=== PATIENT | male | born 1970 | race Caucasian/White ===

== ENCOUNTER 2020-06-21 06:34 | Outpatient (REF) | payer BC, SELFPAY ==
[2020-06-21 11:59] LABS: Prostate Specific Antigen Scr 1.98 ng/mL (<0.05-4.0); TSH reflex Free T4 3.51 mIU/mL (0.32-4.0)
[2020-06-21 12:00] LABS: Anion Gap 15 (12-20); Blood Urea Nitrogen 16 mg/dL (9-16); Calcium 8.5 mg/dL (8.4-10.2); Carbon Dioxide 27 mmol/L (22-29); Chloride 102 mmol/L (96-108); Cholesterol 213 mg/dL; Estimated Glomerular Filt Rate > 60; Glucose Fasting 88 mg/dL (60-99); HDL Cholesterol 43 mg/dL; LDL Cholesterol Calculated 136 mg/dl; Potassium 4.1 mmol/l (3.3-5.1); Sodium 140 mmol/L (135-145); Triglycerides 171 mg/dL
== END 2020-06-21 06:35 | disposition home or self-care (01) ==
LOC: HO.HMGCLDS 06:34
PROVIDERS: PCP Nurse Practitioner Family; Visit Provider Nurse Practitioner Family
DX: Z12.5 Encounter for screening for malignant neoplasm of prostate (principal); Z00.00 Encounter for general adult medical examination without abnormal findings
CPT/HCPCS: 80048; 80061; 84153; 84443

== ENCOUNTER → 2020-07-19 15:18 | Outpatient (BNVA) | payer BC, SELFPAY | PROVIDERS: PCP Nurse Practitioner Family; Referring Provider Nurse Practitioner Family; Visit Provider Nurse Practitioner Family | DX: Z76.89 Persons encountering health services in other specified circumstances (principal) ==

== ENCOUNTER 2020-07-27 14:12 | Outpatient (REF) | payer BC, SELFPAY | END 2020-07-27 14:13 | disposition home or self-care (01) | LOC: HO.LAB 14:12 | PROVIDERS: Visit Provider Internal Medicine | DX: Z20.828 Contact with and (suspected) exposure to other viral communicable diseases (principal) | CPT/HCPCS: C9803; U0003 ==

== ENCOUNTER 2020-09-10 09:59 | Day surgery (SDC) | payer BC, SELFPAY ==
[2020-09-04 10:25] VITALS: BMI 22.7
--- NOTE | 2020-09-06 15:31 | HO.ANESPROP2 ---
Documented by User: Isabella Urias 09/06/20 15:32 HPI - Anesthesia Eval Consult details Narrative: 49yo M for Colonoscopy [facility] Past Medical History Medical History Multiple lipomas Family History Family History (Updated 07/19/20 @ 15:25 by Laxmi Ford CMA) Father No problems noted. Mother Family history of Alzheimer's disease Surgical History Surgical History Lipoma Social History Social History (Updated 07/19/20 @ 15:26 by Laxmi Ford CMA) Alcohol intake: current Alcohol intake frequency: a few times a week Alcohol type: beer Smoking Status: Never smoker Advance Directives: No Advance Directives Information Provided: Yes Meds Allergies Allergy/AdvReac Type Severity Reaction Status Date / Time No Known Allergies Allergy Verified 06/12/20 15:30 Exam Exam Date and Time: September 06, 2020 1531 Height,Weight and Vital Signs: Height 6 ft 0.5 in Weight 77.111 kg Assessment and Plan Assessment Anesthesia Assessment: Chart Reviewed Documented by User: Lori Bowman 09/10/20 10:20 [facility] Past Medical History Medical History Multiple lipomas Family History Family History (Updated 07/19/20 @ 15:25 by Laxmi Ford CMA) Father No problems noted. Mother Family history of Alzheimer's disease Surgical History Surgical History Lipoma Social History Social History (Updated 07/19/20 @ 15:26 by Laxmi Ford CMA) Alcohol intake: current Alcohol intake frequency: a few times a week Alcohol type: beer Smoking Status: Never smoker Advance Directives: No Advance Directives Information Provided: Yes Meds Allergies Allergy/AdvReac Type Severity Reaction Status Date / Time No Known Allergies Allergy Verified 06/12/20 15:30 Exam Airway Mallampati Class: II TM Dist: >3cm Neck ROM: Full
[2020-09-10 10:20] VITALS: BP 143/94; PULSE 92; RESP 16; TEMP 37.1; O2SAT 99; BMI 23.0
[2020-09-10] MEDS: Lactated Ringers 1,000 ML 100 ML IVCONT (10:27)
--- NOTE | 2020-09-10 10:53 | P.OP_ITS ---
Operative Note Operative Note Date of Service: 09/10/20 Narrative: Pre-op diagnosis: Colon cancer screening Post-op diagnosis: other (Diverticulosis, hemorrhoids) Procedure: COLONOSCOPY TILL CECUM Consent: Indications for the procedure and potential complications of bleeding, perforation, reaction to medications and missed diagnosis were discussed with the patient and informed consent was obtained. Instrument: Olympus PCF H 190 L variable stiffness pediatric colonoscope Monitoring: Vital signs and clinical assessment, intermittent blood pressure monitoring, continuous EKG monitoring, Pulse oximetry and Carbon Dioxide monitoring were done throughout the procedure. Colon withdrawl time was 18 minutes. Procedure: The patient was placed in the left lateral decubitis position and pre-procedure medications were administered. After a digital rectal examination of the ano-rectum, the video colonoscope was inserted into the rectum and advanced through the colon to the cecum. The colonoscope was slowly withdrawn in a retrograde panoramic fashion and the colon mucosa was carefully examined including a retroflexed view of the rectum. Findings and interventions are described below. Procedure Difficulty: Without difficulty Findings: Terminal Ileum: Not evaluated Cecum: Normal Ascending Colon: Normal Transverse Colon: Normal Descending Colon: Moderate diverticulosis Sigmoid Colon: Moderate diverticulosis Rectum: Normal Ano-rectum: Moderate internal hemorrhoids Colon preparation: Good Impression and Post Procedure Diagnosis: Colonoscopy Findings: No polyps were detected Moderate diverticulosis seen in the left colon Moderate hemorrhoids on retroflexed exam. Plan: Patient has an appointment on 09/17/20 in the [facility] with Ileana Asher FNP- BC - pt was advised to cancel since no biopsies were obtained. Repeat Colonoscopy in 10 years unless he has any lower GI symptoms - placed on 10 yr recall. Above findings were reviewed with the patient and diverticulosis handout was given in the discharge area Surgeon: Raúl Gore MD Anesthesia: MAC (Kaila Brantley CRNA) Estimated blood loss (mL): 0 Pathology: none sent Condition: stable Disposition: PACU
--- NOTE | 2020-09-10 10:53 | MHC.SHP ---
Pre-Procedural Eval Section A The patient is an INPATIENT: No The History & Physical has been completed within 30 days and I have reviewed it.: No Section B Chief Complaint: screening Details of Present Illness: colon cancer screening - 1st colonoscopy Relevant Family History (Specify if Yes): No Relevant Social History: None Present Medications: see Short Stay Collaborative assessment Medical History: Significant History (Multiple lipoma) History of Previous Operations: Relevant previous surgery/procedure and date(s) (Lipoma) Allergies: Allergies Allergy/AdvReac Type Severity Reaction Status Date / Time No Known Allergies Allergy Verified 06/12/20 15:30 Review of Systems Sugical H&P ROS: Negative: Constitution, Cardiovascular, Respiratory and Gastrointestinal Exam Surgical H&P Exam: Normal: Heart, Normal: Lungs, Normal: Extremities and Normal: Abdomen Plan Diagnosis/Plan: Unchanged I have reviewed the history and physical and performed a pertinent physical examination on my patient. No changes have occurred unless specified.
[2020-09-10 11:35] VITALS: BP 122/72; PULSE 89; RESP 16; TEMP 36.2; O2SAT 98
[2020-09-10 11:50] VITALS: BP 110/77; PULSE 80; RESP 18; O2SAT 99
--- NOTE | 2020-09-10 12:04 | HO.POSTANES ---
Post Anesthesia Evaluation Post Anesthesia Evaluation Vital Signs: Vital Signs Temp Pulse Resp BP Pulse Ox 09/10/20 11:50 97.2 F 80 18 110/77 99 09/10/20 11:35 97.2 F 89 16 122/72 98 09/10/20 10:20 98.7 F 92 16 143/94 H 99 Anesthesia: Monitored Mental Status: Awake Pain Control: Satisfactory Nausea/Vomiting: None Hydration: Adequate Anesthesia-Related Issues: No Anes. Related Issues
== END 2020-09-10 12:27 | disposition home or self-care (01) ==
PROVIDERS: Visit Provider Internal Medicine Gastroenterology
PROC: 0DJD8ZZ Inspection of Lower Intestinal Tract, Via Natural or Artificial Opening Endoscopic (ICD-10-PCS; CPT 45378; principal; 2020-09-10 11:20)
DX: Z12.11 Encounter for screening for malignant neoplasm of colon (principal); K57.30 Diverticulosis of large intestine without perforation or abscess without bleeding; K64.8 Other hemorrhoids
CPT/HCPCS: 45378

== ENCOUNTER 2023-03-16 06:04 | Outpatient (REF) | payer BC, SELFPAY ==
[2023-03-16 11:30] LABS: MANUAL DIFF FLAG NO
[2023-03-16 12:06] LABS: Basophils Absolute Auto 0.1 X10*3/uL (0.0-0.2); Basophils Percent Auto 1.3 % (0-2); Eosinophils Absolute Auto 0.1 X10*3/uL (0.0-0.4); Eosinophils Percent Auto 2.2 % (0-4); Hematocrit 44.8 % (42.0-52.0); Hemoglobin 14.9 g/dl (14.0-18.0); Imm Gran Abs Auto 0.02 X10*3/uL (0.00-0.03); Imm Gran Pct Auto 0.3 % (0.0-0.4); Lymphocytes Absolute Auto 2.8 X10*3/uL (1.2-4.9); Lymphocytes Percent Auto 44.2 % (20-40); Mean Corpuscular HGB Conc 33.3 g/dl (31.0-36.0); Mean Corpuscular Volume 93.1 fL (80.0-98.0); Mean Platelet Volume 11.2 fL (9.4-12.4); Monocytes Absolute Auto 0.5 X10*3/uL (0.1-1.2); Monocytes Percent Auto 8.3 % (2-11); Neutrophils Absolute Auto 2.7 x10*3/uL (2.0-8.3); Neutrophils Percent Auto 43.7 % (45-73); Platelet Count 226 X10*3/uL (160-400); Red Blood Count 4.81 X10*6/uL (4.60-5.80); Red Cell Distribution Width 11.7 % (11.0-16.0); White Blood Count 6.3 X10*3/uL (4.8-10.8)
[2023-03-16 12:09] LABS: Appearance Urine Clear; Color Urine Yellow; Glucose Urine UA Negative (Negative); Leukocyte Esterase Urine Negative (Negative); Nitrite Urine Negative (Negative); PH 8.5 (5.0-9.0); Urine Blood Negative (Negative); Urine Ketones Negative (Negative); Urine Protein Negative (Neg-Trace)
[2023-03-16 12:43] LABS: Prostate Specific Antigen Scr 2.54 ng/mL (<0.05-4.0)
[2023-03-16 12:57] LABS: Alanine Aminotransferase 35 U/L (0-40); Albumin Level 4.4 g/dL (3.5-5.0); Alkaline Phosphatase 63 U/L (39-117); Anion Gap 13 (12-20); Aspartate Amino Transferase 28 U/L (5-37); Bilirubin Total 0.5 mg/dL (0.0-1.0); Blood Urea Nitrogen 13 mg/dL (9-16); Calcium 9.6 mg/dL (8.4-10.2); Carbon Dioxide 28 mmol/L (22-29); Chloride 107 mmol/L (96-108); Cholesterol 190 mg/dL; Estimated Glomerular Filt Rate > 60; Glucose Fasting 93 mg/dL (60-99); HDL Cholesterol 42 mg/dL; LDL Cholesterol Calculated 113 mg/dl; Potassium 4.2 mmol/L (3.3-5.1); Sodium 144 mmol/L (135-145); Total Protein 6.8 g/dL (6.5-8.0); Triglycerides 178 mg/dL
[2023-03-16 13:00] LABS: TSH reflex Free T4 2.92 uIU/mL (0.32-4.0)
== END 2023-03-16 06:05 | disposition home or self-care (01) ==
LOC: HO.HMGCLDS 06:04
PROVIDERS: PCP Nurse Practitioner Family; Visit Provider Nurse Practitioner Family
DX: Z00.00 Encounter for general adult medical examination without abnormal findings (principal); Z12.5 Encounter for screening for malignant neoplasm of prostate; E78.5 Hyperlipidemia, unspecified; Z13.29 Encounter for screening for other suspected endocrine disorder
CPT/HCPCS: 36415; 80053; 80061; 81003; 84153; 84443; 85025

== ENCOUNTER 2024-06-08 14:50 | Outpatient (AMB) | payer BC, SELFPAY ==
--- NOTE | 2024-06-08 14:55 | A.OFFPC_ITS ---
Vital Signs 06/08/24 14:57 Height 6 ft Weight 179 lb BMI 24.3 BP 122/76 Blood Pressure Location Rt brachial Position Sitting Pulse 85 Pulse Source Pulse Oximeter Pulse Oximetry (%) 97 Intake Visit Reasons: Annual PE Azam from 02/18/24 Intake Note: pt is here for annual exam Rubber Engraver Required: No Allergies No Known Allergies Allergy (Verified 06/08/24 17:19) Medication List - Last Reconciled 06/08/24 by MEHRAN Lynch No Known Home Meds Tobacco use date assessed: 06/08/24 Dental Screening Dental Screen Date: 06/08/24 Did you have a dental visit in the last 12 months?: Yes Did you have a dental problem in the last 6 months where you did not have access to dental care?: No Was dental information given to patient?: Patient has dentist HPI Annual PE Azam from 02/18/24 HPI Details Pt is here for a PE. Will order labs. Colon screen is up to date. Due for PSA, will order. Denies dribbling with urination, weak stream, and frequent nocturia. refused ABILIO today PFSH Medical History Multiple lipomas Surgical History Lipoma Family History Father No problems noted. Mother Family history of Alzheimer's disease Social History Housing: House Alcohol intake: current Alcohol intake frequency: a few times a week Alcohol type: beer Patient Tobacco Use Status: Never used Tobacco e-Cigarette/Vaping Use: Never Used Second Hand Smoke Exposure: Yes service: No Current occupational status: employed Current occupation: [employer] Current occupational exposures/hazards: Yes Cognitive needs: No Hearing needs: No Vision needs: No Questionnaire PHQ-9 Over the last 2 weeks, how often have you been bothered by any of the following problems? 1. Little interest or pleasure in doing things: several days 2. Feeling down, depressed, or hopeless: not at all 3. Trouble falling or staying asleep, or sleeping too much: several days 4. Feeling tired or having little energy: several days 5. Poor appetite or overeating: not at all 6. Feeling bad about yourself - or that you are a failure or have let yourself or your family down: not at all 7. Trouble concentrating on things, such as reading the newspaper or watching television: not at all 8. Moving or speaking so slowly that other people could have noticed. Or the opposite - being so fidgety or restless that you have been moving around a lot more than usual: not at all 9. Thoughts that you would be better off or of hurting yourself in some way: not at all Total score: 3 Depression Screening Interpretation: Negative Depression Screening Done: Yes 20220 - PHQ-9 Billing: Yes Source: Developed by Drs. Gerardo Grissom, Karen Conteh, Joel Chi and colleagues, with an educational suzanne from [employer]. Thrive Questionnaire Date Thrive assessed: 06/08/24 I am a: Patient What is your living situation today?: I have a steady place to live Within the past 12 months, did the food you bought not last and you didn't have the money to get more?: Never true Within the past 12 months, did you worry whether your food would run out before you got money to buy more?: Never true Do you have trouble paying for medicines?: No Do you have trouble getting transportation to medical appointments?: No Do you have trouble paying your heating and electricity bill?: No Do you have trouble taking care of your child, family member or friend?: No Do you have trouble with day-to-day activities such as bathing, preparing meals, shopping, managing finances, etc.?: No Are you interested in more education?: No Please select the resources that you would like help with: None Currently or been in a relationship where the following occur: No concerns reported THRIVE Score: 0 AUDIT C Alcohol Use Questionnaire (AUDIT-C) 1. How often do you have a drink containing alcohol?: 2-4 times a month 2. How many drinks containing alcohol do you have on a typical day when you are drinking?: 3 or 4 3. How often do you have six or more drinks on one occasion?: Less than monthly Total Score: 4 Score Reviewed/Action Taken: Yes JANET-7 AMB Questionnaire JANET-7 Date JANET - 7 assessed: 06/08/24 Feeling nervous, anxious, or on edge: 0 = Not at all Not being able to stop or control worryin = Not at all Worrying too much about different things: 0 = Not at all Trouble relaxin = Not at all Being so restless that it is hard to sit still: 0 = Not at all Becoming easily annoyed or irritable: 1 = Several days Feeling afraid as if something awful might happen: 0 = Not at all Total JANET-7 score (0-4 normal; 5-9 mild; 10-14 moderate; 15-21 severe): 1 Source: Developed by Drs. Gerardo Grissom, Karen Conteh, Joel Chi and colleagues, with an educational suzanne from [employer]. JANET-7 Assessment Billing JANET-7 Assessment Tool: JANET-7 Assessment 90546 Review of Systems Const Denies chills and Denies fever(s) Eyes Denies blurry vision ENT Denies vertigo, Denies dizziness and Denies sore throat Card Denies chest pain at rest, Denies chest pain with activity, Denies diaphoresis, Denies dyspnea and Denies dyspnea on exertion Resp Denies cough, Denies dyspnea, Denies dyspnea on exertion and Denies wheezing GI Denies abdominal pain, Denies melena, Denies hematochezia, Denies constipation, Denies diarrhea and Denies loose stools Denies hematuria Musc Denies numbness and Denies tingling Skin/Breast Denies lesions Neuro Denies vertigo, Denies dizziness, Denies numbness and Denies tingling Psych Denies anxiety, Denies depression, Denies homicidal ideation, Denies suicidal ideation and Denies other (substance abuse) Aller/Immun Denies wheezing Physical exam (Primary Care) Vital Signs: Last Vital Signs Pulse 85 06/08/24 14:57 BP 122/76 06/08/24 14:57 Pulse Ox 97 06/08/24 14:57 BMI result Body Mass Index 24.3 Tobacco/Smoking Status: Tobacco use Status Tobacco use date assessed 06/08/24 06/08/24 15:00 Patient Tobacco Use Status Never used Tobacco 06/08/24 14:57 e-Cigarette/Vaping Use Never Used 06/08/24 14:57 PHQ-9: PHQ-9 Score PHQ-9: Total score 3 06/08/24 15:10 Depression Screening Interpretation: Negative Thrive Assessment: Date of Thrive Assessment Date Thrive assessed 06/08/24 06/08/24 15:00 Currently or been in a relationship where the following occur: No concerns reported Const General: cooperative Nutritional Appearance: well nourished Orientation/consciousness: patient oriented x3 HENMT Head: Yes normal to inspection, Yes normocephalic and Yes atraumatic Ears: TM's normal bilaterally Eyes General: appearance normal, both eyes and all related structures Alignment and Position: alignment normal and position normal Neck Neck: Yes normal visual inspection, Yes no lymphadenopathy and Yes supple Resp Effort & Inspection: normal respiratory effort Auscultation: clear to auscultation bilaterally Cardio Rate: regular rate Rhythm: regular rhythm Heart sounds: S1 normal heart sound present, S2 normal heart sound present and no murmurs GI Palpation (GI): Soft to palpation and nontender Auscultation: normal bowel sounds Other: refused ABILIO Male General Exam: Yes normal external exam Penis: normal penis Scrotum: scrotum normal, testes descended bilaterally and no inguinal hernias Testes: no testicular mass Skin Rashes: no rashes Neuro General: patient oriented x3, moves all extremities, no focal motor deficits and deep tendon reflexes 2+ bilaterally Romberg Test: Negative Psych Appearance: grossly normal Mental Status: mental status grossly normal Speech and movement: Normal speech and movement present Affect: normal affect Attitude: cooperative Thought process: Normal thought process present Thought content: Normal thought content present Insight: Good insight present (Psych) Judgement: Good judgement present (Psych) Coding Level of Care Code Est Pt Prev Care 40-64y(86569) Diagnoses Physical exam Z00.00 Screening PSA (prostate specific antigen) Z12.5 Additional Codes JANET-7 Assessment Billing - JANET-7 Assessment Tool: JANET-7 Assessment 12802 ([id number]) Assessment & Plan Assessment & Plan (1) Physical exam: Code(s): Z00.00 - Encounter for general adult medical examination without abnormal findings Category: Medical Plan: Labs ordered (2) Screening PSA (prostate specific antigen): Code(s): Z12.5 - Encounter for screening for malignant neoplasm of prostate Category: Medical Plan: PSA ordered Plan The patient agreed to the use of a medical laboratory scientist for this encounter. Scribed for MEHRAN Gutierrez by Yarelis Lake medical laboratory scientist, on 06/08/2024 at 15:05 EST. Orders: Orders Complete Blood Count Auto Diff Today Z00.00 - Encounter for general adult medical examination without abnormal findings TSH reflex Free T4 Today Z00.00 - Encounter for general adult medical examination without abnormal findings UA CC w/rflx Micro + Cult Today Z00.00 - Encounter for general adult medical examination without abnormal findings Comprehensive [place]. Panel Fast Today Z00.00 - Encounter for general adult medical examination without abnormal findings Lipid Panel Today Z00.00 - Encounter for general adult medical examination without abnormal findings Prostate Specific Antigen Scr Today Z12.5 - Encounter for screening for malignant neoplasm of prostate
[2024-06-08 14:57] VITALS: BP 122/76; PULSE 85; O2SAT 97; BMI 24.3
== END 2024-06-08 15:22 | disposition home or self-care (01) ==
PROVIDERS: PCP Nurse Practitioner Family; Visit Provider Nurse Practitioner Family
DX: Z00.00 Encounter for general adult medical examination without abnormal findings (principal); Z12.5 Encounter for screening for malignant neoplasm of prostate

== ENCOUNTER → 2024-06-08 14:50 | Outpatient (BNVA) | payer BC, SELFPAY | PROVIDERS: PCP Nurse Practitioner Family; Visit Provider Nurse Practitioner Family | DX: Z00.00 Encounter for general adult medical examination without abnormal findings (principal) | CPT/HCPCS: 96127 ==

== ENCOUNTER → 2024-08-02 09:45 | Outpatient (BNVA) | payer OTHER, SELFPAY | PROVIDERS: PCP Nurse Practitioner Family; Visit Provider Physician Assistant Medical | DX: S00.83XA Contusion of other part of head, initial encounter (principal); S40.011A Contusion of right shoulder, initial encounter; S42.034A Nondisplaced fracture of lateral end of right clavicle, initial encounter for closed fracture; V58.4XXA Person boarding or alighting a pick-up truck or van injured in noncollision transport accident, initial encounter; Z23 Encounter for immunization | CPT/HCPCS: 12001; 70450; 73000; 73030; 90715; 99204 ==

== ENCOUNTER → 2024-08-04 08:48 | Outpatient (BNVA) | payer OTHER, SELFPAY | PROVIDERS: PCP Nurse Practitioner Family; Visit Provider Physician Assistant Medical | DX: S00.93XA Contusion of unspecified part of head, initial encounter (principal); S40.011A Contusion of right shoulder, initial encounter; S42.034A Nondisplaced fracture of lateral end of right clavicle, initial encounter for closed fracture; W17.89XA Other fall from one level to another, initial encounter | CPT/HCPCS: 99213 ==

== ENCOUNTER → 2024-08-08 13:11 | Outpatient (BNVA) | payer OTHER, SELFPAY | PROVIDERS: PCP Nurse Practitioner Family; Visit Provider Physician Assistant Medical | DX: S00.83XA Contusion of other part of head, initial encounter (principal); S40.011A Contusion of right shoulder, initial encounter; S42.034A Nondisplaced fracture of lateral end of right clavicle, initial encounter for closed fracture; V58.4XXA Person boarding or alighting a pick-up truck or van injured in noncollision transport accident, initial encounter | CPT/HCPCS: 99212; 99213 ==

== ENCOUNTER 2024-08-10 07:59 | Outpatient (REF) | payer OTHER, SELFPAY ==
[2024-08-10 10:59] LABS: Appearance Urine Clear; Color Urine Yellow; Glucose Urine UA Negative (Negative); Leukocyte Esterase Urine Negative (Negative); Nitrite Urine Negative (Negative); PH 7.5 (5.0-9.0); Urine Blood Negative (Negative); Urine Ketones Negative (Negative); Urine Protein Negative (Neg-Trace)
[2024-08-10 11:05] LABS: MANUAL DIFF FLAG NO
[2024-08-10 11:11] LABS: Basophils Absolute Auto 0.1 X10*3/uL (0.0-0.2); Basophils Percent Auto 0.9 % (0-2); Eosinophils Absolute Auto 0.1 X10*3/uL (0.0-0.4); Eosinophils Percent Auto 1.8 % (0-4); Hematocrit 44.5 % (42.0-52.0); Hemoglobin 15.5 g/dl (14.0-18.0); Imm Gran Abs Auto 0.02 X10*3/uL (0.00-0.03); Imm Gran Pct Auto 0.3 % (0.0-0.4); Lymphocytes Absolute Auto 2.8 X10*3/uL (1.2-4.9); Lymphocytes Percent Auto 38.3 % (20-40); Mean Corpuscular HGB Conc 34.8 g/dl (31.0-36.0); Mean Corpuscular Hemoglobin 31.8 pg (27.0-33.0); Mean Corpuscular Volume 91.2 fL (80.0-98.0); Mean Platelet Volume 9.9 fL (9.4-12.4); Monocytes Absolute Auto 0.6 X10*3/uL (0.1-1.2); Monocytes Percent Auto 8.1 % (2-11); Neutrophils Absolute Auto 3.8 x10*3/uL (2.0-8.3); Neutrophils Percent Auto 50.6 % (45-73); Platelet Count 277 X10*3/uL (160-400); Red Blood Count 4.88 X10*6/uL (4.60-5.80); Red Cell Distribution Width 11.5 % (11.0-16.0); White Blood Count 7.4 X10*3/uL (4.8-10.8)
[2024-08-10 11:29] LABS: Alanine Aminotransferase 34 U/L (0-40); Albumin Level 4.5 g/dL (3.5-5.0); Alkaline Phosphatase 89 U/L (39-117); Anion Gap 11 (12-20); Aspartate Amino Transferase 25 U/L (5-37); Bilirubin Total 0.7 mg/dL (0.0-1.0); Blood Urea Nitrogen 15 mg/dL (9-16); Calcium 9.4 mg/dL (8.4-10.2); Carbon Dioxide 31 mmol/L (22-29); Chloride 104 mmol/L (96-108); Cholesterol 228 mg/dL (<200); Estimated Glomerular Filt Rate > 60; Glucose Fasting 92 mg/dL (60-99); HDL Cholesterol 38 mg/dL (>40); LDL Cholesterol Calculated 146 mg/dL (<100); Potassium 4.6 mmol/L (3.3-5.1); Sodium 141 mmol/L (135-145); Total Protein 7.1 g/dL (6.5-8.0); Triglycerides 220 mg/dL (<150)
[2024-08-10 11:41] LABS: Prostate Specific Antigen Scr 2.71 ng/mL (<0.05-4.0)
[2024-08-10 11:48] LABS: TSH reflex Free T4 2.25 uIU/mL (0.32-4.0)
== END 2024-08-10 08:00 | disposition home or self-care (01) ==
LOC: HO.10HDL 07:59
PROVIDERS: Visit Provider Nurse Practitioner Family
DX: Z00.00 Encounter for general adult medical examination without abnormal findings (principal); Z12.5 Encounter for screening for malignant neoplasm of prostate; Z13.6 Encounter for screening for cardiovascular disorders
CPT/HCPCS: 36415; 80053; 80061; 81003; 84153; 84443; 85025

== ENCOUNTER 2024-11-09 15:20 | Outpatient (AMB) | payer BC, SELFPAY ==
--- NOTE | 2024-11-09 15:25 | A.OFFVIS_ITS ---
Intake Visit Reasons: Elevated PSA Intake Note: Patient is present for ELEVATED PSA Urology Medication:NONE Antibiotic Allergy:NONE Blood Thinner:NONE Hand Mounter Required: No Allergies No Known Allergies Allergy (Verified 11/09/24 16:00) Medication List - Last Reconciled 11/09/24 by MEHRAN Robles No Known Home Meds HPI Comments Details: Breezy is a very pleasant 53-year-old male patient of Dr. Lui. He presents to the office today as a new patient for an elevated PSA. In discussion with the patient today he reports to be doing and feeling well. When asked he denies any known family history of prostate cancer. He denies any bothersome urinary issues or concerns. In office urinalysis results reviewed with the patient today. Previous PSA results reviewed with the patient today as noted and trended below; PSAs 06/19 2.0, 03/22 2.5, 08/23 2.7 We discussed at length potential causes of elevated PSA. We discussed further workup to include redraw of PSA with no sex the night before, no caffeine morning of, and no heavy lifting 1-2 days prior. We also discussed obtaining retroperitoneal ultrasound for further assessment evaluation. He denies urinary urgency, urinary frequency, incontinence, nocturia, hematuria, dysuria, foul smelling urine, changes to urinary stream, flank pain, fever, and or chills. He is happy with his current voiding parameters. ABILIO offered however deferred. He otherwise offers no other issues or concerns at this time. [facility] Medical History Separation of right acromioclavicular joint Multiple lipomas Surgical History Lipoma Family History Father No problems noted. Mother Family history of Alzheimer's disease Social History Housing: House Alcohol intake: current Alcohol intake frequency: a few times a week Alcohol type: beer Patient Tobacco Use Status: Never used Tobacco e-Cigarette/Vaping Use: Never Used Second Hand Smoke Exposure: Yes service: No Current occupational status: employed Current occupation: [employer] Current occupational exposures/hazards: Yes Cognitive needs: No Hearing needs: No Vision needs: No Review of Systems Const All systems reviewed & are unremarkable except as noted in HPI and below Physical Exam Const General: cooperative, healthy appearing, comfortable, no acute distress, well developed, alert and awake Nutritional Appearance: average body habitus Orientation/consciousness: patient oriented x3 Limitations: no limitations HEENT Head: Yes normal to inspection, Yes normocephalic and Yes atraumatic Ears: hearing grossly normal bilaterally Eyes General: appearance normal, both eyes and all related structures Neck Neck: Yes normal visual inspection and Yes trachea midline Chest Chest palpation & inspection: normal inspection of the chest Resp Effort & Inspection: normal respiratory effort and able to speak in complete sentences Cardio Rate: regular rate GI Inspection: Yes normal to inspection General: Yes no CVA tenderness Back/Spine/Pelvis Back: no CVA tenderness Skin General skin exam: no rashes or lesions noted Neuro General: patient oriented x3 Extrem General: Yes normal to inspection Psych Appearance: grossly normal and well kempt Mental Status: mental status grossly normal Speech and movement: Normal speech and movement present and Clear speech present Affect: normal affect Attitude: cooperative Thought process: Normal thought process present Thought content: Normal thought content present Insight: Fair insight present (Psych) Judgement: Fair judgement present (Psych) Results AMB Urinalysis, Automated UA Leukoctes 0 Trudy/uL Last Edit by RIZWANA Grijalva on 11/09/24 15:37 UA Nitrite Negative Last Edit by RIZWANA Grijalva on 11/09/24 15:37 UA Urobilinogen 3.5 mg/dL Last Edit by RIZWANA Grijalva on 11/09/24 15:3 7 UA Protein 0 mg/dL Last Edit by RIZWANA Grijalva on 11/09/24 15:37 UA pH 5.5 Last Edit by RIZWANA Grijalva on 11/09/24 15:37 UA Blood 0 Darrell/uL Last Edit by RIZWANA Grijalva on 11/09/24 15:37 UA Specific Unity 1.025 Last Edit by RIZWANA Grijalva on 11/09/24 15: 37 UA Ketone Negative Last Edit by RIZWANA Grijalva on 11/09/24 15:37 UA Bilirubin 0 mg/dL Last Edit by RIZWANA Grijalva on 11/09/24 15:37 UA Glucose 0 mg/dL Last Edit by RIZWANA Grijalva on 11/09/24 15:37 Results Reviewed Results Reviewed: Laboratory Last Values Urine pH (Auto) 5.5 11/09/24 15:37 Specific Unity (Auto) 1.025 11/09/24 15:37 Urine Protein (Auto) 0 mg/dL 11/09/24 15:37 Glucose (UA)(Auto) 0 mg/dL 11/09/24 15:37 Urine Ketones (Auto) Negative 11/09/24 15:37 Urine Blood (Auto) 0 Darrell/uL 11/09/24 15:37 Urine Nitrite (Auto) Negative 11/09/24 15:37 Urine Bilirubin (Auto) 0 mg/dL 11/09/24 15:37 Urine Urobilinogen (Auto) 3.5 mg/dL 11/09/24 15:37 Leukocyte Esterase (Auto) 0 Trudy/uL 11/09/24 15:37 Assessment & Plan Assessment & Plan (1) Elevated PSA: Code(s): R97.20 - Elevated prostate specific antigen [PSA] Category: Medical Plan In office urinalysis results reviewed with the patient today; as noted above. Recent PSA results reviewed with the patient today; as noted above. We discussed potential causes of borderline PSA as well as further workup to include redraw of PSA and retroperitoneal ultrasound. He currently denies any bothersome urinary issues or concerns. He reports be happy with current voiding parameters. ABILIO offered however deferred. Follow-up in 1-3 months with redraw of PSA and imaging to be completed prior; or sooner with any issues, concerns, and or questions. Orders: Orders Prostate Specific Antigen Today R97.20 - Elevated prostate specific antigen [PSA] US retroperitoneal comp Today R97.20 - Elevated prostate specific antigen [PSA] AMB Urinalysis Automated Today Z13.9 - Encounter for screening, unspecified Patient Instructions: The patient had an opportunity to ask questions regarding the treatment plan. All questions were answered. Physical exam, labs, and imaging were discussed and reviewed in detail. As well as risks, benefits, and discussion of treatment choices. No major barriers to understanding were identified. The patient expressed understanding and agreement with the above treatment plan. The patient was made aware they should contact our office by phone for worsening of their current condition, the appearance of new symptoms, or with any questions or concerns. Compliance is encouraged with any medications and follow up testing that is ordered. It is a privilege to be allowed the opportunity to participate in? your urological care.? Again, if you have any questions or concerns If you have any questions or concerns please do not hesitate to contact me. The office is [phone]. This note is constructed using voice recognition software. While every effort has been made to ensure accuracy lead manufacturing engineering tech errors may have been included. Yours sincerely, MEHRAN Robles Coding Level of Care Code New Pt Level 3 (16271) Diagnoses Elevated PSA R97.20
== END 2024-11-09 15:56 | disposition home or self-care (01) ==
LOC: HO.HUSH 15:21
PROVIDERS: PCP Nurse Practitioner Family; Visit Provider Nurse Practitioner Family
DX: R97.20 Elevated prostate specific antigen [PSA] (principal); Z13.9 Encounter for screening, unspecified
CPT/HCPCS: 99203

== ENCOUNTER → 2024-11-09 15:20 | Outpatient (BNVA) | payer BC, SELFPAY | PROVIDERS: PCP Nurse Practitioner Family; Visit Provider Nurse Practitioner Family | DX: R97.20 Elevated prostate specific antigen [PSA] (principal) | CPT/HCPCS: 81003 ==

== ENCOUNTER 2025-01-30 15:47 | Outpatient (REF) | payer BC, SELFPAY ==
--- NOTE | ~2025-01-30 | US_ITS ---
EXAMINATION: US RETROPERITONEUM HISTORY: R97.20 - Elevated prostate specific antigen [PSA] TECHNIQUE: Real-time grayscale ultrasound imaging of the kidneys was performed and images were reviewed. COMPARISON: There are no prior studies available for comparison. FINDINGS: Right kidney: The right kidney measures 10.9 x 4.6 x 4.1 cm. Renal parenchymal echotexture and thickness are normal. There is a 1.9 x 2.1 x 2.4 cm cyst in the interpolar region demonstrating septations. There is no hydronephrosis or renal calculi. Left Kidney: The left kidney measures 11.5 x 4.7 x 4.4 cm. Renal parenchymal echotexture and thickness are normal. There are no masses. There is no hydronephrosis or renal calculi. The urinary bladder is unremarkable. Bilateral ureteral jets are identified. Before voiding, the urinary bladder measured 9.4 x 7.0 x 7.8 cm, for an estimated volume of 269 mL. After voiding, the urinary bladder measured 4.4 x 3.2 x 4.1 cm, for an estimated volume of 30.2 mL. The prostate measures 4.2 x 3.2 x 4.2 cm, for an estimated volume of 30 mL. US/US retroperitoneal comp IMPRESSION: 1. 1.9 x 2.1 x 2.4 cm septated right renal cyst. Follow-up is recommended. 2. Post void bladder residual of 30.2 mL. Prostate volume of 30 mL. Electronically signed by: Gerardo Whittington MD 01/31/2025 07:14 AM EDT
== END 2025-01-30 15:48 | disposition home or self-care (01) ==
LOC: HO.US 15:47
PROVIDERS: PCP Nurse Practitioner Family; Visit Provider Nurse Practitioner Family
DX: R97.20 Elevated prostate specific antigen [PSA] (principal)
CPT/HCPCS: 76770

== ENCOUNTER → 2025-01-30 15:49 | Outpatient (BNV) | payer BC, SELFPAY | PROVIDERS: PCP Nurse Practitioner Family; Visit Provider Radiology Diagnostic Radiology | DX: N28.1 Cyst of kidney, acquired (principal) | CPT/HCPCS: 76770 ==

== ENCOUNTER 2025-02-06 05:59 | Outpatient (REF) | payer BC, SELFPAY ==
[2025-02-06 08:03] LABS: Prostate Specific Antigen 3.31 ng/mL (<0.05-4.0)
== END 2025-02-06 06:00 | disposition home or self-care (01) ==
LOC: HO.LAB 05:59
PROVIDERS: PCP Nurse Practitioner Family; Visit Provider Nurse Practitioner Family
DX: Z12.5 Encounter for screening for malignant neoplasm of prostate (principal); R97.20 Elevated prostate specific antigen [PSA]
CPT/HCPCS: 36415; 84153

== ENCOUNTER 2025-02-08 14:51 | Outpatient (AMB) | payer BC, SELFPAY ==
--- NOTE | 2025-02-08 14:57 | MHC.OFFVIS ---
Intake Visit Reasons: 3m/US/PSA Intake Note: Patient is present for 3m/US/PSA Urology Medication:NONE Antibiotic Allergy:NONE Blood Thinner:NONE Stenotype Operator Required: No Allergies No Known Allergies Allergy (Verified 02/08/25 15:55) Medication List - Last Reconciled 02/08/25 by MEHRAN Robles No Known Home Meds HPI Comments Details: Breezy is a very pleasant 54-year-old male patient of Dr. Lui. He presents to the office today for follow-up of his elevated PSA. Of note, patient was seen approximately 3 months ago as a new patient elevated PSA at which time a retroperitoneal ultrasound and redraw of PSA were ordered for further assessment evaluation these results were reviewed and communicated with the patient today. 02/22 bilateral kidneys are normal in echotexture and thickness. No hydronephrosis noted bilaterally. There is a 2.4 cm interpolar region renal cyst follow-up is recommended per radiology report. Prostate volume 30 mLs. Recent PSA results reviewed with the patient today as noted and trended below. In discussion with the patient today he reports to be doing and feeling well. When asked he denies any known family history of prostate cancer. He denies any bothersome urinary issues or concerns. In office urinalysis results reviewed with the patient today. PSAs 06/19 2.0, 03/22 2.5, 08/23 2.7, 02/22 3.3 We discussed at length potential causes of elevated PSA. We discussed further workup to include MRI of the prostate verses prostate biopsy verses surveillance monitoring of PSA. He does report having had sexual activity prior to lab draw as he forgot to limit this. We did discuss increase in PSA and potential causes of increase in PSA we discussed further treatment options and risks and benefits of these treatment options. He denies urinary urgency, urinary frequency, incontinence, nocturia, hematuria, dysuria, foul smelling urine, changes to urinary stream, flank pain, fever, and or chills. He is happy with his current voiding parameters. ABILIO offered however deferred. He otherwise offers no other issues or concerns at this time. [facility] Medical History Separation of right acromioclavicular joint Multiple lipomas Surgical History History of colonoscopy (~09/10/20) Lipoma Family History Father No problems noted. Mother Family history of Alzheimer's disease Social History Housing: House Alcohol intake: current Alcohol intake frequency: a few times a week Alcohol type: beer Patient Tobacco Use Status: Never used Tobacco e-Cigarette/Vaping Use: Never Used Second Hand Smoke Exposure: Yes service: No Current occupational status: employed Current occupation: [employer] Current occupational exposures/hazards: Yes Cognitive needs: No Hearing needs: No Vision needs: No Review of Systems Const All systems reviewed & are unremarkable except as noted in HPI and below Physical Exam Const General: cooperative, healthy appearing, comfortable, no acute distress, well developed, alert and awake Nutritional Appearance: average body habitus Orientation/consciousness: patient oriented x3 Limitations: no limitations HEENT Head: Yes normal to inspection, Yes normocephalic and Yes atraumatic Ears: hearing grossly normal bilaterally Eyes General: appearance normal, both eyes and all related structures Neck Neck: Yes normal visual inspection and Yes trachea midline Chest Chest palpation & inspection: normal inspection of the chest Resp Effort & Inspection: normal respiratory effort and able to speak in complete sentences Cardio Rate: regular rate GI Inspection: Yes normal to inspection General: Yes no CVA tenderness Back/Spine/Pelvis Back: no CVA tenderness Skin General skin exam: no rashes or lesions noted Neuro General: patient oriented x3 Extrem General: Yes normal to inspection Psych Appearance: grossly normal and well kempt Mental Status: mental status grossly normal Speech and movement: Normal speech and movement present and Clear speech present Affect: normal affect Attitude: cooperative Thought process: Normal thought process present Thought content: Normal thought content present Insight: Fair insight present (Psych) Judgement: Fair judgement present (Psych) Results AMB Urinalysis, Automated UA Leukoctes 0 Trudy/uL Last Edit by Jeannette Hall on 02/08/25 15:04 UA Nitrite Negative Last Edit by Jeannette Hall on 02/08/25 15:04 UA Urobilinogen 3.5 mg/dL Last Edit by Jeannette Hall on 02/08/25 15:04 UA Protein 1 mg/dL Last Edit by Jeannette Hall on 02/08/25 15:04 UA pH 5.5 Last Edit by Jeannette Hall on 02/08/25 15:04 UA Blood 0 Darrell/uL Last Edit by Jeannette Hall on 02/08/25 15:04 UA Specific [place] 1.025 Last Edit by Jeannette Hall on 02/08/25 15:04 UA Ketone Negative Last Edit by Jeannette Hall on 02/08/25 15:04 UA Bilirubin 0 mg/dL Last Edit by Jeannette Hall on 02/08/25 15:04 UA Glucose 0 mg/dL Last Edit by Jeannette Hall on 02/08/25 15:04 Results Reviewed Results Reviewed: Laboratory Last Values Urine pH (Auto) 5.5 02/08/25 08:32 Specific [place] (Auto) 1.025 02/08/25 08:32 Urine Protein (Auto) 1 mg/dL 02/08/25 08:32 Glucose (UA)(Auto) 0 mg/dL 02/08/25 08:32 Urine Ketones (Auto) Negative 02/08/25 08:32 Urine Blood (Auto) 0 Darrell/uL 02/08/25 08:32 Urine Nitrite (Auto) Negative 02/08/25 08:32 Urine Bilirubin (Auto) 0 mg/dL 02/08/25 08:32 Urine Urobilinogen (Auto) 3.5 mg/dL 02/08/25 08:32 Leukocyte Esterase (Auto) 0 Trudy/uL 02/08/25 08:32 Date of Service: 01/30/25 Procedure(s): US retroperitoneal comp FINDINGS: Right kidney: The right kidney measures 10.9 x 4.6 x 4.1 cm. Renal parenchymal echotexture and thickness are normal. There is a 1.9 x 2.1 x 2.4 cm cyst in the interpolar region demonstrating septations. There is no hydronephrosis or renal calculi. Left Kidney: The left kidney measures 11.5 x 4.7 x 4.4 cm. Renal parenchymal echotexture and thickness are normal. There are no masses. There is no hydronephrosis or renal calculi. The urinary bladder is unremarkable. Bilateral ureteral jets are identified. Before voiding, the urinary bladder measured 9.4 x 7.0 x 7.8 cm, for an estimated volume of 269 mL. After voiding, the urinary bladder measured 4.4 x 3.2 x 4.1 cm, for an estimated volume of 30.2 mL. The prostate measures 4.2 x 3.2 x 4.2 cm, for an estimated volume of 30 mL. IMPRESSION: 1. 1.9 x 2.1 x 2.4 cm septated right renal cyst. Follow-up is recommended. 2. Post void bladder residual of 30.2 mL. Prostate volume of 30 mL. Assessment & Plan Assessment & Plan (1) Elevated PSA: Code(s): R97.20 - Elevated prostate specific antigen [PSA] Category: Medical (2) Renal cyst: Code(s): N28.1 - Cyst of kidney, acquired Category: Medical Plan In office urinalysis results reviewed with the patient today; as noted above. Recent PSA results reviewed with the patient today; as noted above. Recent retroperitoneal ultrasound results reviewed with the patient today; as noted above. We discussed at length potential causes of elevated PSA as well as further treatment options and risks and benefits of these treatment options. Will continue with surveillance monitoring of PSAs as well as renal cysts. He denies any bothersome urinary issues or concerns. He reports be happy with current voiding parameters. All questions were answered. ABILIO offered however deferred. Will obtain PSA in 3 months. Follow-up in 3 months with PSA; or sooner with any issues, concerns, and or questions. Orders: Orders AMB Urinalysis Automated Today Z13.9 - Encounter for screening, unspecified Prostate Specific Antigen 3 Months R97.20 - Elevated prostate specific antigen [PSA] Patient Instructions: The patient had an opportunity to ask questions regarding the treatment plan. All questions were answered. Physical exam, labs, and imaging were discussed and reviewed in detail. As well as risks, benefits, and discussion of treatment choices. No major barriers to understanding were identified. The patient expressed understanding and agreement with the above treatment plan. The patient was made aware they should contact our office by phone for worsening of their current condition, the appearance of new symptoms, or with any questions or concerns. Compliance is encouraged with any medications and follow up testing that is ordered. It is a privilege to be allowed the opportunity to participate in? your urological care.? Again, if you have any questions or concerns If you have any questions or concerns please do not hesitate to contact me. The office is [phone]. This note is constructed using voice recognition software. While every effort has been made to ensure accuracy profile shaper operator errors may have been included. Yours sincerely, MEHRAN Robles Coding Level of Care Code Est Pt Level 3 (52930) Diagnoses Elevated PSA R97.20 Renal cyst N28.1
== END 2025-02-08 15:36 | disposition home or self-care (01) ==
LOC: HO.HUSH 14:51
PROVIDERS: PCP Nurse Practitioner Family; Visit Provider Nurse Practitioner Family
DX: R97.20 Elevated prostate specific antigen [PSA] (principal); N28.1 Cyst of kidney, acquired; Z13.9 Encounter for screening, unspecified
CPT/HCPCS: 99213

== ENCOUNTER → 2025-02-08 14:51 | Outpatient (BNVA) | payer BC, SELFPAY | PROVIDERS: PCP Nurse Practitioner Family; Visit Provider Nurse Practitioner Family | DX: R97.20 Elevated prostate specific antigen [PSA] (principal); N28.1 Cyst of kidney, acquired | CPT/HCPCS: 81003 ==

== ENCOUNTER 2025-05-17 06:00 | Outpatient (REF) | payer BC, SELFPAY ==
[2025-05-17 08:20] LABS: Prostate Specific Antigen 1.74 ng/mL (<0.05-4.0)
== END 2025-05-17 06:01 | disposition home or self-care (01) ==
LOC: HO.LAB 06:00
PROVIDERS: PCP Nurse Practitioner Family; Visit Provider Nurse Practitioner Family
DX: R97.20 Elevated prostate specific antigen [PSA] (principal); Z12.5 Encounter for screening for malignant neoplasm of prostate
CPT/HCPCS: 36415; 84153

== ENCOUNTER 2025-05-22 15:52 | Outpatient (REF) | payer BC, SELFPAY | END 2025-05-22 15:53 | disposition home or self-care (01) | LOC: HO.LAB 15:52 | PROVIDERS: PCP Nurse Practitioner Family; Visit Provider Nurse Practitioner Family | DX: R97.20 Elevated prostate specific antigen [PSA] (principal); N28.1 Cyst of kidney, acquired; R31.29 Other microscopic hematuria | CPT/HCPCS: 81003; 88112 ==

== ENCOUNTER 2025-05-22 15:52 | Outpatient (AMB) | payer BC, SELFPAY ==
--- NOTE | 2025-05-22 15:55 | MHC.OFFVIS ---
Intake Visit Reasons: 3m/PSA Intake Note: Patient is present for 3M/PSA Urology Medication:NONE Antibiotic Allergy:NONE Blood Thinner:NONE Human Resources Benefits Manager Required: No Allergies No Known Allergies Allergy (Verified 05/22/25 20:20) Medication List - Last Reconciled 05/22/25 by MEHRAN Robles No Known Home Meds HPI Comments Details: Breezy is a very pleasant 54-year-old male patient of Dr. Lui. He presents to the office today for follow-up of his elevated PSA. In discussion with the patient today he reports to be doing and feeling well. He denies having had any bothersome urinary issues or concerns since his last office visit here. Recent PSA results reviewed with the patient today. As noted and trended below. Previous workup has included a retroperitoneal ultrasound 02/22 noting bilateral kidneys are normal in echotexture and thickness. No hydronephrosis noted bilaterally. There is a 2.4 cm interpolar region renal cyst follow-up is recommended per radiology report. Prostate volume 30 mLs. When asked he denies any known family history of prostate cancer. He denies any bothersome urinary issues or concerns. In office urinalysis results reviewed with the patient today. PSAs are as follows: PSAs 06/19 2.0, 03/22 2.5, 08/23 2.7, 02/22 3.3, 05/25 1.7 We discussed at length potential causes of elevated/labile PSA. We discussed further workup to include MRI of the prostate verses prostate biopsy verses surveillance monitoring of PSA. He denies urinary urgency, urinary frequency, incontinence, nocturia, hematuria, dysuria, foul smelling urine, changes to urinary stream, flank pain, fever, and or chills. He is happy with his current voiding parameters. ABILIO offered however deferred. He otherwise offers no other issues or concerns at this time. [facility] Medical History Separation of right acromioclavicular joint Multiple lipomas Surgical History History of colonoscopy (~09/10/20) Lipoma Family History Father No problems noted. Mother Family history of Alzheimer's disease Social History Housing: House Alcohol intake: current Alcohol intake frequency: a few times a week Alcohol type: beer Patient Tobacco Use Status: Never used Tobacco e-Cigarette/Vaping Use: Never Used Second Hand Smoke Exposure: Yes service: No Current occupational status: employed Current occupation: [employer] Current occupational exposures/hazards: Yes Cognitive needs: No Hearing needs: No Vision needs: No Review of Systems Const All systems reviewed & are unremarkable except as noted in HPI and below Physical Exam Const General: cooperative, healthy appearing, comfortable, no acute distress, well developed, alert and awake Nutritional Appearance: average body habitus Orientation/consciousness: patient oriented x3 Limitations: no limitations HEENT Head: Yes normal to inspection, Yes normocephalic and Yes atraumatic Ears: hearing grossly normal bilaterally Eyes General: appearance normal, both eyes and all related structures Neck Neck: Yes normal visual inspection and Yes trachea midline Chest Chest palpation & inspection: normal inspection of the chest Resp Effort & Inspection: normal respiratory effort and able to speak in complete sentences Cardio Rate: regular rate GI Inspection: Yes normal to inspection General: Yes no CVA tenderness Back/Spine/Pelvis Back: no CVA tenderness Skin General skin exam: no rashes or lesions noted Neuro General: patient oriented x3 Extrem General: Yes normal to inspection Psych Appearance: grossly normal and well kempt Mental Status: mental status grossly normal Speech and movement: Normal speech and movement present and Clear speech present Affect: normal affect Attitude: cooperative Thought process: Normal thought process present Thought content: Normal thought content present Insight: Fair insight present (Psych) Judgement: Fair judgement present (Psych) Results AMB Urinalysis, Automated UA Leukoctes 0 Trudy/uL Last Edit by Jeannette Hall on 05/22/25 16:14 UA Nitrite Negative Last Edit by Jeannette Hall on 05/22/25 16:14 UA Urobilinogen 0.2 mg/dL Last Edit by Jeannette Hall on 05/22/25 16:14 UA Protein 0 mg/dL Last Edit by Jeannette Hall on 05/22/25 16:14 UA pH 6.0 Last Edit by Jeannette Hall on 05/22/25 16:14 UA Blood 10 Darrell/uL Last Edit by Jeannette Hall on 05/22/25 16:14 UA Specific [place] 1.020 Last Edit by Jeannette Hall on 05/22/25 16:14 UA Ketone Negative Last Edit by Jeannette Hall on 05/22/25 16:14 UA Bilirubin 0 mg/dL Last Edit by Jeannette Hall on 05/22/25 16:14 UA Glucose 0 mg/dL Last Edit by Jeannette Hall on 05/22/25 16:14 Results Reviewed Results Reviewed: Laboratory Last Values Urine pH (Auto) 6.0 05/22/25 15:57 Specific [place] (Auto) 1.020 05/22/25 15:57 Urine Protein (Auto) 0 mg/dL 05/22/25 15:57 Glucose (UA)(Auto) 0 mg/dL 05/22/25 15:57 Urine Ketones (Auto) Negative 05/22/25 15:57 Urine Blood (Auto) 10 Darrell/uL 05/22/25 15:57 Urine Nitrite (Auto) Negative 05/22/25 15:57 Urine Bilirubin (Auto) 0 mg/dL 05/22/25 15:57 Urine Urobilinogen (Auto) 0.2 mg/dL 05/22/25 15:57 Leukocyte Esterase (Auto) 0 Trudy/uL 05/22/25 15:57 Assessment & Plan Assessment & Plan (1) Renal cyst: Code(s): N28.1 - Cyst of kidney, acquired Category: Medical (2) Elevated PSA: Code(s): R97.20 - Elevated prostate specific antigen [PSA] Category: Medical Plan In office urinalysis results reviewed with the patient today; as noted above; will send for urine cytology. Recent PSA results reviewed with the patient today; as noted above. He currently denies any bothersome urinary issues or concerns. He reports be happy with current voiding parameters. We did discussed potential causes of labile PSA. Will continue with surveillance monitoring. All questions were answered. Will obtain PSA in 6 months. Follow-up in 6 months with PSA; or sooner with any issues, concerns, and or questions. Orders: Orders AMB Urinalysis Automated Today Z13.9 - Encounter for screening, unspecified Urine Cytology Today R31.29 - Other microscopic hematuria Prostate Specific Antigen 6 Months R97.20 - Elevated prostate specific antigen [PSA] Patient Instructions: The patient had an opportunity to ask questions regarding the treatment plan. All questions were answered. Physical exam, labs, and imaging were discussed and reviewed in detail. As well as risks, benefits, and discussion of treatment choices. No major barriers to understanding were identified. The patient expressed understanding and agreement with the above treatment plan. The patient was made aware they should contact our office by phone for worsening of their current condition, the appearance of new symptoms, or with any questions or concerns. Compliance is encouraged with any medications and follow up testing that is ordered. It is a privilege to be allowed the opportunity to participate in? your urological care.? Again, if you have any questions or concerns If you have any questions or concerns please do not hesitate to contact me. The office is [phone]. This note is constructed using voice recognition software. While every effort has been made to ensure accuracy signal circuit designer errors may have been included. Yours sincerely, MEHRAN Robles Coding Level of Care Code Est Pt Level 3 (01557) Diagnoses Renal cyst N28.1 Elevated PSA R97.20
== END 2025-05-22 16:20 | disposition home or self-care (01) ==
LOC: HO.HUSH 15:53
PROVIDERS: PCP Nurse Practitioner Family; Visit Provider Nurse Practitioner Family
DX: N28.1 Cyst of kidney, acquired (principal); R97.20 Elevated prostate specific antigen [PSA]; Z13.9 Encounter for screening, unspecified
CPT/HCPCS: 99213

== ENCOUNTER 2025-06-19 15:24 | Outpatient (AMB) | payer BC, SELFPAY ==
[2025-06-19 15:27] VITALS: BP 126/84; PULSE 73; RESP 16; O2SAT 99; BMI 23.2
--- NOTE | 2025-06-19 15:27 | A.OFFPC_ITS ---
Vital Signs 06/19/25 15:27 Height 6 ft Weight 171 lb BMI 23.2 BP 126/84 Blood Pressure Location Lt brachial Position Sitting Respiration 16 Pulse 73 Pulse Source Pulse Oximeter Pulse Oximetry (%) 99 Oxygen Delivery Method Room Air Intake Visit Reasons: PE Coal Weigher Required: No Accompanied by: Self / Same As Patient Allergies No Known Allergies Allergy (Verified 06/19/25 15:38) Medication List - Last Reconciled 06/19/25 by JAE Lynch No Known Home Meds Tobacco use date assessed: 06/19/25 Dental Screening Dental Screen Date: 06/19/25 Did you have a dental visit in the last 12 months?: Yes Did you have a dental problem in the last 6 months where you did not have access to dental care?: No Was dental information given to patient?: Patient has dentist HPI PE HPI Details History of Present Illness The patient is a 54-year-old male presenting for a physical exam and preventative care measures. He reports that his colon cancer screening is up-to-date and he regularly sees urology for prostate-specific antigen (PSA) checks and examinations. He denies experiencing any chest pain, dyspnea, abdominal pain, hematochezia, constipation, diarrhea, suicidal ideation, or homicidal ideation. Overall, he reports doing well and has no significant complaints at this time. Health Maintenance - Colon cancer screening is up-to-date - Regular prostate-specific antigen (PSA ) checks with urology Social History Review of Systems - Cardiovascular: Denies chest pain - Respiratory: Denies dyspnea - Gastrointestinal: Denies abdominal hardeep n, hematochezia, constipation, diarrhea - Psychiatric: Denies suicidal ideation, homicidal ideation Physical Exam General: Cooperative, healthy appearing, comfortable, no acute distress and well developed Orientation: Patient oriented x3 Limitations: No limitations Head: Normal to inspection Ears: Hearing grossly normal bilaterally Nose: Normal external nose present Face and sinus: Normal facial exam Eyes: Appearance normal, both eyes and all related structures Neck: Normal visual inspection and Yes full ROM Respiratory: Normal respiratory effort and able to speak in complete sentences. Clear to auscultation bilaterally Cardiovascular: Regular rate and rhythm. Normal S1 and S2 GI: Normal to inspection. Soft to palpation and nontender : Testicles without masses/lesions and no hernias appreciated Skin: No rashes or lesions noted Neuro: Patient oriented x3 Extremities: Normal to inspection Results Plan 1. Preventative Care: Colon Cancer Meccae sha The patient has completed his colon cancer screening, which is up-to-date. 2. Preventative Care: Prostate-Specific Antigen (Psa) Checks The patient regularly undergoes PSA checks with urology as part of his prev entative care. Discussion Notes I discussed with the patient the importance of maintaining regular screenings, including colon cancer screening and PSA checks, as part of his preventative health care. We also talked about the need to complete his labs in the near future, which should be fasting, to ensure comprehensive health monitoring. Patient Instructions - Schedule and complete fasting labs daniel chow [facility] Medical History Separation of right acromioclavicular joint Multiple lipomas Surgical History History of colonoscopy (~09/10/20) Lipoma Family History Father No problems noted. Mother Family history of Alzheimer's disease Social History Housing: House Alcohol intake: current Alcohol intake frequency: a few times a week Alcohol type: beer Patient Tobacco Use Status: Never used Tobacco e-Cigarette/Vaping Use: Never Used Second Hand Smoke Exposure: Yes service: No Current occupational status: employed Current occupation: [employer] Current occupational exposures/hazards: Yes Cognitive needs: No Hearing needs: No Vision needs: No Questionnaire PHQ-9 Over the last 2 weeks, how often have you been bothered by any of the following problems? 1. Little interest or pleasure in doing things: several days 2. Feeling down, depressed, or hopeless: not at all 3. Trouble falling or staying asleep, or sleeping too much: several days 4. Feeling tired or having little energy: several days 5. Poor appetite or overeating: not at all 6. Feeling bad about yourself - or that you are a failure or have let yourself or your family down: not at all 7. Trouble concentrating on things, such as reading the newspaper or watching television: not at all 8. Moving or speaking so slowly that other people could have noticed. Or the opposite - being so fidgety or restless that you have been moving around a lot more than usual: not at all 9. Thoughts that you would be better off or of hurting yourself in some way: not at all Total score: 3 Depression Screening Interpretation: Negative Depression Screening Done: Yes 73150 - PHQ-9 Billing: Yes Source: Developed by Drs. Gerardo Grissom, Karen Conteh, Joel Chi and colleagues, with an educational suzanne from [employer]. Thrive Questionnaire Date Thrive assessed: 06/08/24 I am a: Patient What is your living situation today?: I have a steady place to live Within the past 12 months, did the food you bought not last and you didn't have the money to get more?: Never true Within the past 12 months, did you worry whether your food would run out before you got money to buy more?: Never true Do you have trouble paying for medicines?: No Do you have trouble getting transportation to medical appointments?: No Do you have trouble paying your heating and electricity bill?: No Do you have trouble taking care of your child, family member or friend?: No Do you have trouble with day-to-day activities such as bathing, preparing meals, shopping, managing finances, etc.?: No Are you currently unemployed and looking for a job?: No Are you interested in more education?: No Please select the resources that you would like help with: None Currently or been in a relationship where the following occur: No concerns reported THRIVE Score: 0 AUDIT C Alcohol Use Questionnaire (AUDIT-C) 1. How often do you have a drink containing alcohol?: 2-4 times a month 2. How many drinks containing alcohol do you have on a typical day when you are drinking?: 1 or 2 3. How often do you have six or more drinks on one occasion?: Less than monthly Total Score: 3 Score Reviewed/Action Taken: Yes JANET-7 AMB Questionnaire JANET-7 Date JANET - 7 assessed: 06/19/25 Feeling nervous, anxious, or on edge: 0 = Not at all Not being able to stop or control worryin = Not at all Worrying too much about different things: 0 = Not at all Trouble relaxin = Not at all Being so restless that it is hard to sit still: 0 = Not at all Becoming easily annoyed or irritable: 0 = Not at all Feeling afraid as if something awful might happen: 0 = Not at all Total JANET-7 score (0-4 normal; 5-9 mild; 10-14 moderate; 15-21 severe): 0 Source: Developed by Drs. Gerardo Grissom, Karen Coneth, Joel Chi and colleagues, with an educational suzanne from [employer]. JANET-7 Assessment Billing JANET-7 Assessment Tool: JANET-7 Assessment 52067 Physical exam (Primary Care) Tobacco/Smoking Status: Tobacco use Status Tobacco use date assessed 06/08/24 06/08/24 15:00 Patient Tobacco Use Status Never used Tobacco 06/08/24 14:57 e-Cigarette/Vaping Use Never Used 06/08/24 14:57 Depression Screening Interpretation: Negative Thrive Assessment: Date of Thrive Assessment Date Thrive assessed 06/08/24 06/08/24 15:00 Currently or been in a relationship where the following occur: No concerns reported Coding Level of Care Code Est Pt Prev Care 40-64y(49500) Diagnoses Physical exam Z00.00 Additional Codes JANET-7 Assessment Billing - JANET-7 Assessment Tool: JANET-7 Assessment 68360 ([id number]) PHQ-9 - 15173 - PHQ-9 Billing: Yes ([id number]) Assessment & Plan Assessment & Plan (1) Physical exam: Code(s): Z00.00 - Encounter for general adult medical examination without abnormal findings Category: Medical Plan .
== END 2025-06-19 15:57 | disposition home or self-care (01) ==
LOC: HO.HMCC 15:25
PROVIDERS: PCP Nurse Practitioner Family; Visit Provider Nurse Practitioner Family
DX: Z00.00 Encounter for general adult medical examination without abnormal findings (principal)

== ENCOUNTER → 2025-06-19 15:24 | Outpatient (BNVA) | payer BC, SELFPAY | PROVIDERS: PCP Nurse Practitioner Family; Visit Provider Nurse Practitioner Family | DX: Z00.00 Encounter for general adult medical examination without abnormal findings (principal) | CPT/HCPCS: 96127 ==